=== PATIENT | female | born 1960 | race Caucasian/White ===

== ENCOUNTER → 2017-04-03 | Outpatient (CLI) | payer BC ==
[~2017-04-03] MED LIST: DICL-201 PO; EFF50 PO; METH500T37 PO; OMEG10007 PO; PRO BIOTIC; PROP20TA67 PO; RALO60TA30 PO; VITAMIN D3 PO; bone-up
== END | disposition home or self-care (01) ==
LOC: C.LAB 09:25
PROVIDERS: ATTEND Internal Medicine
DX: Z11.59 Encounter for screening for other viral diseases (principal)

== ENCOUNTER → 2018-05-28 | Outpatient (CLI) | payer OTHER ==
--- NOTE | 2018-05-28 17:25 | DIAGNOSTIC IMAGING REPORT ---
R HIP UNILATERAL 2 VIEWS CLINICAL HISTORY: R10.31 Right groin [id number] pain COMPARISON: None. DISCUSSION: Mild degenerative narrowing right hip joint space. No evidence for acetabular protrusion. Sacroiliac joints are unremarkable. There is no evidence for soft tissue swelling. IMPRESSION: No acute process. Mild degenerative change. The above report was generated using voice recognition software. It may contain grammatical, syntax or spelling errors. Electronically signed by: Chicho Yanes M.D. 05/28/2018 5:24 PM Dictated Date/Time: 05/28/2018 5:24 PM
--- NOTE | 2018-05-28 17:27 | DIAGNOSTIC IMAGING REPORT ---
L-SPINE MIN 4 VIEWS ROUTINE HISTORY: Pain. Nausea. R10.31 Right groin [id number] COMPARISON: None. FINDINGS: There is no fracture. Mild scoliosis. Mild degenerative disc change throughout. No evidence for compression deformity. IMPRESSION: Mild degenerative disc change throughout. No acute process. Mild scoliosis. The above report was generated using voice recognition software. It may contain grammatical, syntax or spelling errors. Electronically signed by: Chicho Yanes M.D. 05/28/2018 5:25 PM Dictated Date/Time: 05/28/2018 5:24 PM
== END | disposition home or self-care (01) ==
LOC: C.RAD1850 15:31
PROVIDERS: ATTEND Internal Medicine
DX: R10.31 Right lower quadrant pain (principal)

== ENCOUNTER → 2018-06-12 | Outpatient (CLI) | payer OTHER ==
[~2018-06-12] MED LIST changes: +GADAVIST IV PRN
--- NOTE | 2018-06-12 16:01 | DIAGNOSTIC IMAGING REPORT ---
LUMBAR SPINE COMBINATION CLINICAL HISTORY: 57 years-old Female with M54.5 Low back painM48.061 Lumbar spinal tzaughilX08.7 Musculosk. 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 Uterus appears to be retroflexed. 14 degrees convex left curvature of the lumbar spine measured from L2-L4. There is no acute fracture, subluxation or focal bone marrow edema of the lumbar spine. Conus medullaris terminates at T12-L1. Signal within the imaged thoracic spinal cord appears unremarkable. Cauda equina appear to be within normal limits. No enhancing mass lesions are identified. No aortic aneurysm or pathologically enlarged lymph nodes identified. T12-L1: Small posterior annular disc bulge with spondylitic spurring and mild facet arthrosis. No central canal or foraminal narrowing on the sagittal images alone. No significant change. L1-L2: Mild spondylitic spurring with small posterior disc bulge and mild facet arthrosis with ligamentum flavum thickening. Flattening of the ventral thecal sac without significant central canal stenosis. There is mild left foraminal narrowing. The right foramen is patent. Findings are slightly progressed from comparison. L2-L3: Mild intervertebral disc space narrowing with spondylitic spurring, circumferential annular disc bulge and possible annular fissure. Moderate facet arthrosis with ligamentum flavum thickening. Findings cause mild central canal and mild bilateral foraminal stenosis. Previously suggested right lateral recess disc protrusion is no longer identified. L3-L4: Mild intervertebral disc space narrowing with circumferential annular disc bulge, annular fissure and central disc extrusion measuring up to 1.2 cm in cranial, dimension is noted along with severe facet arthrosis and ligamentum flavum thickening. Trace left facet effusion. AP dimension of the thecal sac is narrowed to 3 mm resulting in severe central canal and mild to moderate bilateral foraminal narrowing. Findings have progressed from prior. L4-L5: Mild intervertebral disc space narrowing with circumferential annular disc bulge, annular fissure and central disc protrusion which measures 1.2 cm transversely. Additionally, there is mild spondylitic spurring with moderate facet arthrosis and ligamentum flavum thickening. Findings cause mild to moderate central canal, moderate left and mild to moderate right foraminal narrowing. These findings have also worsened from comparison. L5-S1: Small posterior annular disc bulge with ligamentum flavum thickening, moderate facet arthrosis with trace facet effusions. No central canal or foraminal narrowing. No significant change. IMPRESSION: 1. Progressively worsened discogenic degenerative changes as detailed above, most pronounced at L3-L4 where there is a circumferential annular disc bulge with annular fissure and central disc extrusion with facet arthrosis and ligamentum flavum thickening resulting in severe central canal and mild to moderate bilateral foraminal narrowing. 2. Mild to moderate central canal with moderate left and mild to moderate right foraminal narrowing at L4-L5. 3. Mild central canal and mild bilateral foraminal narrowing at L2-L3. 4. No acute fracture, subluxation or focal bone marrow edema. 5. No abnormal enhancement. The above report was generated using voice recognition software. It may contain grammatical, syntax or spelling errors. Electronically signed by: Jurgen Jeronimo M.D. 06/12/2018 4:00 PM Dictated Date/Time: 06/12/2018 3:47 PM
== END | disposition home or self-care (01) ==
LOC: C.MRI 14:52
PROVIDERS: ATTEND Internal Medicine
DX: M48.061 Spinal stenosis, lumbar region without neurogenic claudication (principal); M54.5 Low back pain; R93.7 Abnormal findings on diagnostic imaging of other parts of musculoskeletal system